=== PATIENT | male | born 1960 | race Caucasian/White ===

== ENCOUNTER 2024-05-18 16:03 | Outpatient (CLI) | payer BC, SELFPAY ==
--- NOTE | 2024-05-18 14:15 | DI.RAD_ITS ---
Exam(s) XR KNEE RT 3V AP,LAT,MARILYN EXAM: XR KNEE RT 3V AP,LAT,MARILYN CLINICAL HISTORY: RIGHT KNEE PAIN. TECHNIQUE: 2D digital imaging was performed. Three views. COMPARISON: No exams were available for comparison FINDINGS: BONES: No acute fracture is present. No bony destructive lesion is seen. Prominent enthesophytes at t he patella and tibial tubercle. JOINTS: The joint spaces are maintained. The knee is normally aligned. No joint effusion is seen. SOFT TISSUE: Normal. IMPRESSION: Prominent enthesophytes at the lower pole patella and tibial tubercle.. DATA REPOSITORY: RADIATION DOSE DELIVERED:
== END 2024-05-18 16:04 | disposition home or self-care (01) ==
LOC: DIORS 16:04
PROVIDERS: PCP Family Medicine; Visit Provider Student in an Organized Health Care Education/Training Program
DX: M76.891 Other specified enthesopathies of right lower limb, excluding foot (principal)
CPT/HCPCS: 73562

== ENCOUNTER 2024-06-13 01:05 | Outpatient (CLI) | payer BC, SELFPAY ==
--- NOTE | 2024-06-13 07:15 | DI.MRI_ITS ---
Exam(s) MR LOWER JOINT RT WO EXAM: MR LOWER JOINT RT WO CLINICAL HISTORY: R KNEE INJURY, ? MENISCAL TEAR,acute,S83.241a. TECHNIQUE: Multiplanar multisequence MRI was performed. COMPARISON: CR XR KNEE RT 3V AP,LAT,MARILYN from 05/18/2024 FINDINGS: BONES: There is no fracture or contusion pattern. There are prominent enthesophytes of the patella an d the tibial tuberosity. JOINTS: There is mild thinning of the articular cartilage in the medial femoral tibial joint with mil d subchondral edema. There is a small amount of fluid in the joint space. TENDONS: Extensor mechanism: Unremarkable. Medial retinaculum: Unremarkable. Lateral retinaculum: Unremarkable. Popliteus: Unremarkable. MUSCLES: Unremarkable. MENISCI: There is intermediate signal seen in the body and posterior horn of the medial meniscus whic h does not reticular with a surface consistent with degeneration. On the sagittal images there is a focus of abnormal signal seen along the tibial surface of the posterior horn of the medial meniscus w hich may represent a small tear. The lateral meniscus is unremarkable. SOFT TISSUES: Unremarkable. LIGAMENTS: Anterior Cruciate: Unremarkable. Posterior Cruciate: Unremarkable. Medial Collateral:There is mild hyperintense signal seen around the MCL which may represent a sprain. Lateral Collateral: Unremarkable. OTHER: IMPRESSION: 1. Small focus of abnormal signal along the tibial surface of the posterior horn of the medial menisc us which may represent a small tear. 2. MCL sprain. 3. No evidence of an occult fracture. DATA REPOSITORY:
--- NOTE | 2024-06-13 07:15 | DI.RAD_ITS ---
Exam(s) XR EYE FOREIGN BODY EXAM: XR EYE FOREIGN BODY INDICATION: PRE MRI clearance,acute medial meniscal tear,h/o metal in eye. COMPARISON: No exams were available for comparison TECHNIQUE: 2D digital imaging was performed. FINDINGS: No radiopaque foreign bodies are present in the orbits. IMPRESSION: No radiopaque foreign bodies are present in the orbits. DATA REPOSITORY: RADIATION DOSE DELIVERED:
== END 2024-06-13 01:25 ==
PROVIDERS: PCP Family Medicine; Visit Provider Student in an Organized Health Care Education/Training Program
DX: S83.241D Other tear of medial meniscus, current injury, right knee, subsequent encounter (principal); X58.XXXD Exposure to other specified factors, subsequent encounter
CPT/HCPCS: 73721; 70030